=== PATIENT | female | born 1980 | race Caucasian/White ===

== ENCOUNTER 2016-05-31 23:13 | Emergency (ER) | payer BC, OTHER ==
[2016-05-31 23:20] VITALS: RESP 16; TEMP 98.6
--- NOTE | 2016-05-31 23:55 | ED ---
General Adult HPI - General Chief complaint: Abdominal Pain Stated complaint: vomiting, abd pain Time Seen by Provider: 05/31/16 23:27 Source: patient, RN notes reviewed, old records reviewed Mode of arrival: ambulatory Limitations: no limitations - History of Present Illness Initial comments: This is a 35-year-old female here for bowel pain. Patient complaining of epigastric right upper quadrant without pain. Patient has had some before similar episodes before with gallbladder disease. Her gallbladder has been removed. Patient's no specific medical history. Patient does admit to nausea and vomiting severe for the past 2 days. Worsening. No bowel movements yesterday, no diarrhea. No fevers again. No sick contacts or travel history. No modifying factors for symptoms at home. - Related Data Home Medications Medication Instructions Recorded Confirmed Amoxicillin 500 mg PO BID 05/31/16 05/31/16 Ibuprofen [Motrin] 800 mg PO Q6HR PRN 05/31/16 05/31/16 Allergies Allergy/AdvReac Type Severity Reaction Status Date / Time No Known Allergies Allergy Verified 05/31/16 23:39 Review of Systems ROS Statement: Those systems with pertinent positive or pertinent negative responses have been documented in the HPI. ROS Other: All systems not noted in ROS Statement are negative. Past Medical History Past Medical History: No Reported History History of Any Multi-Drug Resistant Organisms: None Reported Past Surgical History: Section, Cholecystectomy, Tubal Ligation Past Psychological History: No Psychological Hx Reported Smoking Status: Never smoker Past Alcohol Use History: None Reported Past Drug Use History: None Reported General Exam Limitations: no limitations General appearance: alert, in no apparent distress, obese Head exam: Present: atraumatic, normocephalic, normal inspection Eye exam: Present: normal appearance, PERRL, EOMI. Absent: scleral icterus, conjunctival injection, periorbital swelling ENT exam: Present: normal exam, mucous membranes moist Neck exam: Present: normal inspection. Absent: tenderness, meningismus, lymphadenopathy Respiratory exam: Present: normal lung sounds bilaterally. Absent: respiratory distress, wheezes, rales, rhonchi, stridor Cardiovascular Exam: Present: regular rate, normal rhythm, normal heart sounds. Absent: systolic murmur, diastolic murmur, rubs, gallop, clicks GI/Abdominal exam: Present: soft, normal bowel sounds. Absent: distended, tenderness, guarding, rebound, rigid Extremities exam: Present: normal inspection, full ROM, normal capillary refill. Absent: tenderness, pedal edema, joint swelling, calf tenderness Back exam: Present: normal inspection Neurological exam: Present: alert, oriented X3, CN II-XII intact Psychiatric exam: Present: normal affect, normal mood Skin exam: Present: warm, dry, intact, normal color. Absent: rash Course Vital Signs 05/31/16 23:18 Temperature 98.6 F Pulse Rate 100 Respiratory 16 Rate Blood Pressure 114/55 O2 Sat by Pulse 100 Oximetry - Reevaluation(s) Reevaluation #1: 06/01/16 00:56 Patient's symptoms at this time are improved Reevaluation #2: 06/01/16 02:47 Patient currently without any nausea vomiting or pain Medical Decision Making - Medical Decision Making 35 female here for evaluation without pain nausea vomiting. Patient's symptoms are improved, she does have history of cholecystectomy mild elevation of AST ALT and alk phos, patient does have elevated white count, suspect reactive leukocytosis to vomiting, CT abdomen and pelvis is negative for acute disease. Lipase is negative, patient can be discharged and return to ER if symptoms worsen - Lab Data Result diagrams: 05/31/16 23:55 05/31/16 23:55 Lab Results 05/31/16 05/31/16 05/31/16 Range/Units 23:55 23:55 23:55 WBC 18.2 H (3.8-10.6) k/uL RBC 4.60 (3.80-5.40) m/uL Hgb 14.1 (11.4-16.0) gm/dL Hct 41.3 (34.0-46.0) % MCV 89.8 (80.0-100.0) fL MCH 30.7 (25.0-35.0) pg MCHC 34.2 (31.0-37.0) g/dL RDW 12.7 (11.5-15.5) % Plt Count 356 (150-450) k/uL Neutrophils % 95 % Lymphocytes % 2 % Monocytes % 2 % Eosinophils % 1 % Basophils % 0 % Neutrophils # 17.2 H (1.3-7.7) k/uL Lymphocytes # 0.4 L (1.0-4.8) k/uL Monocytes # 0.4 (0-1.0) k/uL Eosinophils # 0.1 (0-0.7) k/uL Basophils # 0.0 (0-0.2) k/uL Sodium 144 (137-145) mmol/L Potassium 4.0 (3.5-5.1) mmol/L Chloride 105 (98-107) mmol/L Carbon Dioxide 24 (22-30) mmol/L Anion Gap 15 mmol/L BUN 15 (7-17) mg/dL Creatinine 0.60 (0.52-1.04) mg/dL Est GFR (MDRD) Af Amer >60 (>60 ml/min/1.73 sqM) Est GFR (MDRD) Non-Af >60 (>60 ml/min/1.73 sqM) Glucose 103 H (74-99) mg/dL Plasma Lactic Acid Ar 0.8 (0.7-2.0) mmol/L Calcium 8.7 (8.4-10.2) mg/dL Total Bilirubin 0.9 (0.2-1.3) mg/dL AST 61 H (14-36) U/L ALT 109 H (9-52) U/L Alkaline Phosphatase 133 H (38-126) U/L Total Protein 7.2 (6.3-8.2) g/dL Albumin 4.2 (3.5-5.0) g/dL Amylase 37 (30-110) U/L Lipase 128 (23-300) U/L Urine Color Urine Appearance (Clear) Urine pH (5.0-8.0) Ur Specific [place] (1.001-1.035) Urine Protein (Negative) Urine Glucose (UA) (Negative) Urine Ketones (Negative) Urine Blood (Negative) Urine Nitrate (Negative) Urine Bilirubin (Negative) Urine Urobilinogen (<2.0) mg/dL Ur Leukocyte Esterase (Negative) Urine RBC (0-5) /hpf Urine WBC (0-5) /hpf Urine Mucus (None) /hpf 05/31/16 Range/Units 23:55 WBC (3.8-10.6) k/uL RBC (3.80-5.40) m/uL Hgb (11.4-16.0) gm/dL Hct (34.0-46.0) % MCV (80.0-100.0) fL MCH (25.0-35.0) pg MCHC (31.0-37.0) g/dL RDW (11.5-15.5) % Plt Count (150-450) k/uL Neutrophils % % Lymphocytes % % Monocytes % % Eosinophils % % Basophils % % Neutrophils # (1.3-7.7) k/uL Lymphocytes # (1.0-4.8) k/uL Monocytes # (0-1.0) k/uL Eosinophils # (0-0.7) k/uL Basophils # (0-0.2) k/uL Sodium (137-145) mmol/L Potassium (3.5-5.1) mmol/L Chloride (98-107) mmol/L Carbon Dioxide (22-30) mmol/L Anion Gap mmol/L BUN (7-17) mg/dL Creatinine (0.52-1.04) mg/dL Est GFR (MDRD) Af Amer (>60 ml/min/1.73 sqM) Est GFR (MDRD) Non-Af (>60 ml/min/1.73 sqM) Glucose (74-99) mg/dL Plasma Lactic Acid Ar (0.7-2.0) mmol/L Calcium (8.4-10.2) mg/dL Total Bilirubin (0.2-1.3) mg/dL AST (14-36) U/L ALT (9-52) U/L Alkaline Phosphatase (38-126) U/L Total Protein (6.3-8.2) g/dL Albumin (3.5-5.0) g/dL Amylase (30-110) U/L Lipase (23-300) U/L Urine Color Yellow Urine Appearance Clear (Clear) Urine pH 6.0 (5.0-8.0) Ur Specific [place] 1.029 (1.001-1.035) Urine Protein 1+ H (Negative) Urine Glucose (UA) Negative (Negative) Urine Ketones 1+ H (Negative) Urine Blood Moderate H (Negative) Urine Nitrate Negative (Negative) Urine Bilirubin Negative (Negative) Urine Urobilinogen 2.0 (<2.0) mg/dL Ur Leukocyte Esterase Negative (Negative) Urine RBC 166 H (0-5) /hpf Urine WBC 2 (0-5) /hpf Urine Mucus Moderate H (None) /hpf - Radiology Data Radiology results: report reviewed (CT abdomen and pelvis is negative for acute disease), image reviewed Disposition Clinical Impression: Abdominal pain, Nausea & vomiting Disposition: HOME SELF-CARE Condition: Good Instructions: Acute Nausea and Vomiting (ED), Abdominal Pain (ED) Referrals: Néstor Conley DO [Primary Care Provider] - 1-2 days
[2016-06-01] MEDS ORDERED: SODIUM CHLORIDE 0.9% 1,000 ML IV STA (00:18)
[2016-06-01] MEDS ORDERED: MORPHINE SULFATE 4 MG/ML SYRINGE IV STA (00:18)
[2016-06-01] MEDS ORDERED: ONDANSETRON 4 MG/2 ML VIAL IVP STA ×2 (00:18→02:53)
[2016-06-01] MEDS ORDERED: RX INFO: IV CONTRAST WAS GIVEN 1 EACH MISC MISCELLANE PRN (00:18)
[2016-06-01] MEDS ORDERED: SODIUM CHLORIDE 0.9% 500 ML IV STA (00:18)
[2016-06-01] MEDS ORDERED: PANTOPRAZOLE 40 MG/10 ML VIAL IVP STA (00:18)
[2016-06-01 00:39] LABS: Appearance,Urine Clear (Clear); Basophils % (A) 0 %; Bilirubin,Urine Negative (Negative); CHCM 33.6; Eosinophils # (A) 0.1 k/uL (0-0.7); Eosinophils % (A) 1 %; Glucose,Urine (UA) Negative (Negative); HCT 41.3 % (34.0-46.0); HGB 14.1 gm/dL (11.4-16.0); Ketones,Urine 1+ (Negative); Leukocyte Esterase,Urine Negative (Negative); Luc # (Auto) 0.06; Luc % (Auto) 0; Lymphocytes # (A) 0.4 k/uL (1.0-4.8); Lymphocytes % (A) 2 %; MCH 30.7 pg (25.0-35.0); MCHC 34.2 g/dL (31.0-37.0); MCV 89.8 fL (80.0-100.0); Mean Platelet Volume 7.2; Monocytes # (A) 0.4 k/uL (0-1.0); Monocytes % (A) 2 %; Mucus,Urine Moderate /hpf; Neutrophils # (A) 17.2 k/uL (1.3-7.7); Neutrophils % (A) 95 %; Nitrite,Urine Negative (Negative); Particle Count 6232; Protein,Urine 1+ (Negative); RBC,Urine 166 /hpf (0-5); RDW 12.7 % (11.5-15.5); Specific Gravity,Urine 1.029 (1.001-1.035); UA Billing (MACRO vs. MICRO) MICRO; WBC 18.2 k/uL (3.8-10.6); WBC (Perox) 18.27; WBC,Urine 2 /hpf (0-5)
[2016-06-01 00:42] LABS: ALT 109 U/L (9-52); AST 61 U/L (14-36); Alkaline Phosphatase 133 U/L (38-126); Amylase 37 U/L (30-110); Anion Gap 15 mmol/L; Blood Urea Nitrogen 15 mg/dL (7-17); Calcium 8.7 mg/dL (8.4-10.2); Carbon Dioxide 24 mmol/L (22-30); Chloride 105 mmol/L (98-107); Glucose 103 mg/dL (74-99); Non-African American GFR(MDRD) >60 (>60 ml/min/1.73 sqM); Sodium 144 mmol/L (137-145); Total Bilirubin 0.9 mg/dL (0.2-1.3); Total Protein 7.2 g/dL (6.3-8.2)
--- NOTE | 2016-06-01 02:41 | CT ---
EXAMINATION TYPE: CT abdomen pelvis w con DATE OF EXAM: 06/01/2016 12:56 AM COMPARISON: NONE HISTORY: RLQ, Umbilical pain, Abd pain history of tubal ligation . CT DLP: 373.40 mGycm Automated exposure control for dose reduction was used. TECHNIQUE: Helical acquisition of images was performed from the lung bases through the pelvis. CONTRAST: Performed without Oral Contrast and with IV Contrast, patient injected with 100 mL of Omnipaque 300. FINDINGS: LUNG BASES: No significant abnormality is appreciated. LIVER/GB: Liver appears unremarkable. Cholecystectomy changes are present with surgical clips in plac e. PANCREAS: No significant abnormality is seen. SPLEEN: No significant abnormality is seen. ADRENALS: No significant abnormality is seen. KIDNEYS: No significant abnormality is seen. Benign-appearing 7 mm cyst is noted in the right kidney. Tiny nonobstructing opaque stones are suggested in both kidneys. REPRODUCTIVE ORGANS: No significant abnormality is seen. Tubal ligation clips are noted. URINARY BLADDER: No significant abnormality is seen. PELVIC ADENOPATHY: None visualized. OSSEOUS STRUCTURES: No significant abnormality is seen. Mild old compression deformities of lower th oracic vertebrae are noted. BOWEL: Appendix is not visualized. No significant inflammation is noted in the appendix area. Stomach appears grossly unremarkable. Mild to moderate fluid distention of small bowel loops are noted in the abdomen and pelvis with mild enteritis changes. Colonic bowel loops showed mild to moderate fluid and gas distention. Mild colonic diverticulosis is noted. IMPRESSION: 1. POSSIBLE MILD ENTERITIS CHANGES. 2. APPENDIX IS NOT VISUALIZED. NO SIGNIFICANT INFLAMMATION IS NOTED IN THE APPENDIX AREA. 3. CHOLECYSTECTOMY. 4. NO HYDRONEPHROSIS BILATERALLY. TINY NONOBSTRUCTING STONES ARE SUGGESTED IN BOTH KIDNEYS. SMALL YASHIRA IGN-APPEARING CYST IN THE RIGHT KIDNEY. A CLINICAL CORRELATION AND FOLLOW-UP IS RECOMMENDED.
[2016-06-01] MEDS ORDERED: MORPHINE SULFATE 4 MG/ML SYRINGE IVP STA (02:53)
[2016-06-01 03:07] VITALS: BP 130/80; PULSE 70
== END 2016-06-01 03:02 | disposition home or self-care (01) ==
LOC: SUPCPDRO 23:13 → EC 23:13
DX: R11.2 Nausea with vomiting, unspecified (principal)
CPT/HCPCS: 99284; 96374; 96375 ×2; 96376 ×2; 36415; 80053; 82150; 83605; 83690; 85025; 81001; 87086; 74177; J2270; J2405; Q9967; C9113